=== PATIENT | female | born 1975 | race Caucasian/White ===

== ENCOUNTER 2020-01-16 07:00 | Day surgery (SDC) | payer OTHER ==
[~2020-01-16] VITALS: Ht 175.3 cm; Wt 113.4 kg
== END 2020-01-16 13:00 | disposition home or self-care (01) ==
LOC: CIR.AMB 07:00 → ER 07:01 → SEC-K 07:01 → O/R 07:01 → CIR.AMB 13:00 → EDSTATUS 15:15 → SEC-K 18:02 → O/R 18:02 → SEC-K 19:20
PROVIDERS: ATTEND General Practice
DX: O03.4 Incomplete spontaneous abortion without complication (principal); Z20.828 Contact with and (suspected) exposure to other viral communicable diseases